=== PATIENT | female | born 1995 | race Caucasian/White ===

== ENCOUNTER 2020-01-15 05:21 | Emergency (ER) | payer BC ==
[~2020-01-15] VITALS: Ht 162.5 cm; Wt 70.3 kg
[~2020-01-15 05:21] MED LIST: CEPHALEXIN500 M1 PO; LIDEX 0.05% CRE15 GM T
[2020-01-15 06:44] LABS: CLARITY TURBID (CLEAR); COLOR RED (YELLOW)
[2020-01-15 06:45] LABS: BILIRUBIN NEGATIVE (NEGATIVE); GLUCOSE NEGATIVE (NEGATIVE); KETONE NEGATIVE (NEGATIVE)
[2020-01-15 06:46] LABS: BACTERIA 1+; BLOOD 3+ (NEGATIVE); LEUKO ESTERASE TRACE (NEGATIVE); NITRITE NEGATIVE (NEGATIVE); RBC TNTC rbc/hpf (0-2); UROBILINOGEN 0.2 E.U./dl (0.2-1.0); WBC 21-30 wbc/hpf (0-5)
[2020-01-15] MEDS ORDERED: CIPRO500 MG PO (06:51)
[2020-01-15] MEDS ORDERED: PYRIDIUM200 M1 PO (06:51)
== END 2020-01-15 06:27 | disposition home or self-care (01) ==
LOC: ED 05:21
PROVIDERS: Emergency Medicine
DX: N30.90 Cystitis, unspecified without hematuria (principal); Z79.899 Other long term (current) drug therapy